=== PATIENT | female | born 1985 ===

== ENCOUNTER 2018-04-14 20:49 | Emergency (ER) | payer SELFPAY ==
[~2018-04-14 20:49] MED LIST: ISOVUE-370 76%-LOCM 1 ML ONE
[2018-04-14 21:22] LABS: #Basophils 0.1 thou/uL (0.0-0.2); #Eosinphils 0.2 thou/uL (0.0-0.7); #Lymphocytes 2.2 thou/uL (1.20-3.40); #Monocytes 0.3 thou/uL (0.11-0.59); #Neutrophils 2.7 thou/uL (1.40-6.50); %Basophils 1.4 % (0.0-1.0); %Eosinophils 4.2 % (0.0-10.0); %Lymphocytes 39.5 % (21.0-51.0); %Neutrophils 48.9 % (42.0-75.0); Hemoglobin 12.4 g/dL (12.0-16.0); Mean Corpuscular HGB CONC 32.6 g/dL (32.0-36.0); Mean Corpuscular Hemoglobin 31.3 pg (27.0-31.0); Mean Corpuscular Volume 96.2 fL (78.0-98.0); Platelet Count 256 thou/uL (130-400); RBC Distribution Width 10.8 % (11.5-14.5); Red Blood Cell (RBC) Count 3.95 mill/uL (4.20-5.40); White Blood Cell (WBC) Count 5.5 thou/uL (4.8-10.8)
[2018-04-14 21:29] LABS: BHCG - Serum Negative (NEGATIVE); Pregs Control Background? CLEAR/WHITE (CLR/WHITE); Pregs Control Bar Appear? YES (CONTROL BAR)
[2018-04-14 21:45] LABS: ALT (SGPT) 14 U/L (8-55); AST (SGOT) 17 U/L (5-34); Albumin 4.7 g/dL (3.5-5.0); Alkaline Phosphatase 75 U/L (40-150); Anion Gap 11 mmol/L (10-20); BUN (Urea Nitrogen) 17 mg/dL (7.0-18.7); Bilirubin, Total 0.4 mg/dL (0.2-1.2); Calc. Creatinine Clearance 0 mL/min (70-130); Calcium 10.1 mg/dL (7.8-10.44); Carbon Dioxide 29 mmol/L (22-29); Chloride 106 mmol/L (98-107); Estimated GFR-MDRD 82; Globulin 2.6 g/dL (2.4-3.5); Glucose 87 mg/dL (70-105); Potassium 4.3 mmol/L (3.5-5.1); Protein, Total 7.3 g/dL (6.0-8.3); Sodium 142 mmol/L (136-145)
--- NOTE | 2018-04-14 22:15 | CT ---
CT ANGIO OF CHEST WITH 3D RENDERIN04/14/18 HISTORY: Chest pain for several days. The lungs appear clear. No mediastinal mass or adenopathy. No pleural effusion or pericardial effusio n. No CT evidence for acute pulmonary embolism. No evidence for aortic aneurysm or dissection. The vi sualized upper abdomen is unremarkable. IMPRESSION: No CT evidence for acute pulmonary embolism. No pleural effusion or pericardial effusion or other sig nificant acute abnormality in the chest. POS: ROSEND[facility]
== END 2018-04-14 22:45 | disposition home or self-care (01) ==
LOC: ERS 20:49
DX: M94.0 Chondrocostal junction syndrome [Tietze] (principal); R07.89 Other chest pain; Z86.711 Personal history of pulmonary embolism
CPT/HCPCS: 71275; 80053; 84484; 84703; 85025; 93005; Q9966